=== PATIENT | male | born 1950 | race Caucasian/White ===

== ENCOUNTER 2018-12-04 08:34 | Day surgery (SDC) | payer OTHER ==
--- OUTSIDE RECORDS SUMMARY | 2018-12-04 08:40 | XMS REPORT | Clinical Summary ---
:1950 Author Organization [facility] Address [address] [place] [address] Care Team Providers Name Role Phone Brandon Piedra Primary Care Provider Fidel Livingston Unavailable Allergies No Known Allergies Medications Medication Sig Dispensed Refills Start Date End Date Status clonazePAM (KLONOPIN) 1 Take 1 mg by 0 Active MG tablet mouth 2 (two) times daily as needed for Anxiety. levothyroxine Take 112 mcg by 0 Active (SYNTHROID, LEVOTHROID) mouth Every 112 MCG tablet morning on an empty stomach. multivitamin per tablet Take 1 tablet by 0 Active mouth daily. omega-3 fatty Take by mouth. 0 Active acids-vitamin E 1,000 mg Cap melatonin 3 mg Tab Take by mouth. 0 Active atorvastatin (LIPITOR) Take 1 tablet (20 30 tablet 3 06/04/2016 Active 20 MG tablet mg total) by mouth daily. Active Problems Problem Noted Date Coronary artery disease 05/30/2016 S/P CABG (coronary artery bypass graft) 05/30/2016 Acute pulmonary insufficiency following thoracic surgery 05/30/2016 Postoperative anemia due to acute blood loss 05/30/2016 Social History Tobacco Use Types Packs/Day Years Used Date Current Every Day Smoker Cigarettes 1 26 Started: 09/16/1989 Alcohol Use Drinks/Week oz/Week Comments Yes 6 Standard drinks or equivalent 3.0 beer Sex Assigned at Date Recorded Not on file Job Start Date Occupation Industry Not on file Not on file Not on file Travel History Travel Start Travel End No recent travel history available. Last Filed Vital Signs Not on file Plan of Treatment Not on file Results Not on fileafter 12/03/2017 Insurance Payer Benefit Plan / Group Subscriber ID Type Phone Address [employer] - MEDICARE MGD [employer] MED[employer]ARE ADV xxxxxxxxx Maps Contracted CARE Advance Directives For more information, please contact:[address] [phone] Code Status Date Activated Date Inactivated Comments Full Code 05/30/2016 11:33 AM 06/04/2016 6:19 PM This code status was determined by: Patient Full Code 05/30/2016 5:32 AM 05/30/2016 11:33 AM This code status was determined by: Patient
[2018-12-04] MEDS ORDERED: GENTAMICIN 80 MG/100 ML BAG 80 MG/100 ML BAG IV ONE (08:51)
[2018-12-04] MEDS ORDERED: Ringers Lactate 1,000 ML IV ONE (08:51)
[2018-12-04] MEDS ORDERED: PROPOFOL 200 MG/20 ML VIAL IV ONE (09:34)
[2018-12-04] MEDS ORDERED: ONDANSETRON 4 MG/2 ML VIAL ONE (09:35)
[2018-12-04] MEDS ORDERED: FENTANYL CITR 100 MCG/2 ML ONE (10:11)
[2018-12-04] MEDS ORDERED: MIDAZOLAM HCL 2 MG/2 ML INJ ONE (10:11)
[2018-12-04] MEDS ORDERED: LIDOCAINE 1% MPF 5 ML VIAL ONE (10:12)
[2018-12-04] MEDS ORDERED: EPHEDRINE SULF 50 MG/ML VIAL ONE (10:59)
[2018-12-04] MEDS ORDERED: GLYCOPYRROLATE 0.2 MG/ML SYR ONE (11:01)
[2018-12-04] MEDS ORDERED: HYDROMORPHONE HCL 2 MG/ML inj ONE (11:55)
[2018-12-04 12:33] VITALS: TEMP 97.2
[2018-12-04 13:25] VITALS: BP 124/66; O2SAT 97
== END 2018-12-04 13:25 | disposition home or self-care (01) ==
LOC: OR 08:34
PROVIDERS: ATTEND Urology
PROC: 0V508ZZ Destruction of Prostate, Via Natural or Artificial Opening Endoscopic (ICD-10-PCS; principal; 2018-12-04 10:00)
DX: N40.1 Benign prostatic hyperplasia with lower urinary tract symptoms (principal); N13.8 Other obstructive and reflux uropathy; R39.12 Poor urinary stream; I12.9 Hypertensive chronic kidney disease with stage 1 through stage 4 chronic kidney disease, or unspecified chronic kidney disease; N18.3 Chronic kidney disease, stage 3 (moderate); E03.9 Hypothyroidism, unspecified; E78.5 Hyperlipidemia, unspecified; I25.10 Atherosclerotic heart disease of native coronary artery without angina pectoris; I48.0 Paroxysmal atrial fibrillation; F41.9 Anxiety disorder, unspecified; F32.9 Major depressive disorder, single episode, unspecified; Z79.82 Long term (current) use of aspirin; Z79.899 Other long term (current) drug therapy; Z86.73 Personal history of transient ischemic attack (TIA), and cerebral infarction without residual deficits; Z87.891 Personal history of nicotine dependence; Z95.1 Presence of aortocoronary bypass graft
CPT/HCPCS: 52601; 88305; J2704; J2250; J1170; J3010; J1580; J2405